=== PATIENT | female | born 1990 | race Caucasian/White ===

== ENCOUNTER 2017-08-03 01:40 | Inpatient (IN) ==
[~2017-08-03 01:40] MED LIST: *HR* Nalbuphine 10 MG/ML AMPUL IVP PRN; Famotidine 20 MG/2 ML VIAL IVP PRN; Lidocaine 1% 20 ML MDV INFILT PRN; Metoclopramide 10 MG/2 ML VIAL IVP PRN; Naloxone 0.4 MG/ML INJ IVP PRN
[2017-08-03] MEDS ORDERED: Ringers Solution, Lactated 1,000 ML IVC SCH (01:45)
[2017-08-03 01:54] LABS: Basophils % 0.3 %; Eosinophils # 0.1 K/mcL (0.0-0.6); Eosinophils % 0.7 %; Hematocrit 35.2 % (35.3-44.9); Hemoglobin 12.1 g/dL (11.5-15.4); Immature Granulocytes % 0.6 % (0-4); Immature Platelets 6.8 % (1.1-6.1); Lymphocytes # 2.5 K/mcL (0.6-4.6); Lymphocytes % 24.2 %; Mean Corpuscular HGB Conc 34.4 g/dL (31.6-35.5); Mean Corpuscular Volume 87.3 fL (83.0-100.0); Mean Platelet Volume 11.5 fL (9.4-12.4); Monocytes # 0.7 K/mcL (0.0-1.3); Monocytes % 6.9 %; Platelet Count 265 K/mcL (140-400); Red Blood Count 4.03 M/mcL (3.82-4.97); Red Cell Distribution Width 13.2 % (11.5-14.5); Segmented Neutrophils % 67.3 %
[2017-08-03 02:05] LABS: Amphetamine Screen,Urine Negative ng/mL (Cutoff=1000); Barbiturate Screen,Urine Negative ng/mL (Cutoff=200); Benzodiazepines Screen,Urine Negative ng/mL (Cutoff=200); Cannabinoid Screen,Urine Negative ng/mL (Cutoff = 50); Cocaine Screen,Urine Negative ng/mL (Cutoff= 300); Opiate Screen,Urine Negative ng/mL (Cutoff=300); Phencyclidine Screen,Urine Negative ng/mL (Cutoff=25)
--- NOTE | 2017-08-03 06:39 | OB/GYN History & Physical ---
Date of Encounter: 08/03/17 Time of Encounter: 06:27 Assessment and Plan (1) 38 weeks gestation of Current visit: Yes Status: Acute Admit to labor and delivery for observation of labor Intermittent auscultation Labs - CBC and clot to hold May have epidural and Nubain upon request Anticipate Dr. Wells is OB converter supervisor and is available as needed (2) Ruptured, membranes, premature Current visit: Yes Status: Acute Positive nitrazine Positive pooling Limit cervical checks Qualifiers: PROM onset of labor timing: onset of labor within 24 hours of rupture PROM gestational age: full term Qualified Code(s): O42.02 - Full-term premature rupture of membranes, onset of labor within 24 hours of rupture History of Present Illness Chief complaint: r/o rom HPI: Ms. Perdomo is a 26 year old female with an estimated date of of 08/17/17 at 38 weeks 0 days dated by LMP. She presents with concerns for rupture membranes. She reports that she thinks that ruptured around midnight. She denies contractions, leakage of fluid, vaginal bleeding. Endorses good movement. Her course has been uncomplicated. She was followed by the midwives throughout her . records are available in her chart and have been reviewed. Labs: O- GBS- Hep B- Hep C- HIV- RPR NR GC/CL- Rubella immune Varicella immune Past Med Surg Social Fam HX - Past Medical History Psychiatric history: no psych history - Social History Smoking Status: Never smoker Alcohol use: none Drug use: none - Family History Father Age: 53 Living Status: Still Living Hx Family Cardiac Disorders: Yes (htn) Hx Family Respiratory Disorders: No Hx Family Cancer: No Hx Family Genitourinary Disorders: No Hx Family Endocrine Disorder: No Hx Family Musculoskeletal Disorders: No Hx Family Neuromuscular Disorders: No Hx Family Neurologic Disorders: No Hx Family HEENT Disorders: No Hx Family Autoimmune Disorders: No Hx Family Reproductive Disorders: No Hx Family Psychosocial Disorders: No Hx Family Medical Disorders: Yes (hypothyroidism) Obstetrical History - Pregnancies : 1 Para: 0 Term: 0 : 0 Ab's: 0 Livin Medications and Allergies Ferrous Sulfate 324 mg PO DAILY 08/03/17 [History] Formula Tablet 1 tab PO DAILY 08/03/17 [History] 3 Allergy/AdvReac Type Severity Reaction Status Date / Time No Known Allergies Allergy Verified 05/22/18 01:40 Review of System OB All systems PM: reviewed and no additional remarkable complaints except as stated Exam - Vital Signs Vital signs: Initial Vital Signs Temp Pulse Resp BP 98.6 F 83 15 131/83 08/03/17 01:27 08/03/17 01:27 08/03/17 01:27 08/03/17 01:27 - Constitutional Constitutional: well developed, well nourished, average body habitus, mild distress - HEENT HEENT: Normocephaly, Mucus Membranes Moist - Neck Neck exam: full ROM - Lungs Respiratory exam: CTAB - Cardiovascular Cardiovascular exam: RRR, +S1, +S2 - Breasts Breast: bilateral: normal - Abdomen Abdomen: Present: bowel sounds normal, gravid, non tender - Extremities Extremities exam: normal capillary refill, normal inspection, radial pulses palpable and symmetrical - Vulva Vulva: bilateral: normal - Vagina Vagina: Present: normal moisture, discharge - Cervix Dilation: 4 (per RN) Effacement: 80 Station: -2 - Uterus Uterus exam: Present: normal size, normal contour - Adnexa Adnexa: bilateral: normal - Anus/Rectum Anus/Rectum: Present: normal perianal skin Results Result Diagrams: 08/03/17 01:40 Abnormal lab results Hct 35.2 % (35.3-44.9) L 08/03/17 01:40 Immature Plt Fraction 6.8 % (1.1-6.1) H 08/03/17 01:40 All other labs normal. - VTE Reasons for not Prescribing Prophylaxis: Treatment not Indicated - Low risk for VTE
[2017-08-03] MEDS: Ondansetron 4 MG/2 ML VIAL IVP PRN ×2 (06:58→15:24)
--- NOTE | 2017-08-03 09:38 | Anesthesia Evaluation PreOp ---
Date of Encounter: 08/03/17 Time of Encounter: 09:36 - Past History Planned Operation: vaginal del, G1 Cardiac History: Denies any Significant Hx Pulmonary History: Denies Any Significant HX MONOTYPE OPERATOR History: Denies Any Significant HX Other Medical History: Denies Any Significant HX Anesthesia History: No Prior Anesthetic Complications, Past Anesthesia Alcohol Use: none Drug use: none Medications and Allergies Ferrous Sulfate 324 mg PO DAILY 08/03/17 [History] Formula Tablet 1 tab PO DAILY 08/03/17 [History] 3 Allergy/AdvReac Type Severity Reaction Status Date / Time No Known Allergies Allergy Verified 08/03/17 01:40 Anesthesia Results - Labs 08/03/17 01:40 Anesthesia Exam - HEENT Pupil (Motor): Pupils equal Mallampati: II Teeth: Normal Oral Opening: Greater than 3 - MONOTYPE OPERATOR LOC: Oriented MONOTYPE OPERATOR Motor: Normal RUE, Normal LUE, Normal RLE, Normal LLE, Normal Face MONOTYPE OPERATOR Sensory: Normal: RUE, LUE, RLE, LLE, Face - Cardiac Rhythm: Regular Murmur: None - Pulmonary Breath Sounds: bilateral Clear Respiratory Effort: Symmetrical Anesthesia Assess/Plan ASA Score: 2 Modified [place] Scale for Level of Consciousness: Cooperative, oriented, and tranquil Anesthetic Plan: General, Regional Monitoring Plan: Standard Monitors
[2017-08-03] MEDS ORDERED: EPHEDrine 50 MG/ML VIAL IVP PRN (09:39)
[2017-08-03] MEDS ORDERED: Epidural Premix (fent/bupiv) 110 ML EP SCH (09:45)
--- NOTE | 2017-08-03 09:58 | OB Labor Progress Note ---
Date of Encounter: 08/03/17 Time of Encounter: 09:55 Labor Progress Note - Subjective Subjective: Patient doing well. Discussed POC with patient. Patient denies any questions or concerns. Patient reports pain is tolerable at this time. - Cervix Cervix: 4.5/90/0 - Heart Tones Heart Tones: 145 bpm moderate variability +15x15 accels no decels noted. Cat. 1 tracing - [place]: 2-5 min apart - Interventions Interventions: SVE - Plan Plan: Will start pitocin for labor augmentation Patient may have Nubain or epidural for pain management when she desires anticipate
[2017-08-03] MEDS ORDERED: Oxytocin 20 units/ LR 1000 mL 20 UNIT/1,000 ML BAG IVC SCH ×2 (10:00→20:20)
[2017-08-03] MEDS ORDERED: Epidural Premix (fent/bupiv) 110 ML EP ONE ×2 (10:26→16:29)
--- NOTE | 2017-08-03 11:08 | Anesthesia Procedures ---
Date of Encounter: 08/03/17 Time of Encounter: 10:38 Procedures: Anesthesia - Epidural/Spinal Patient ID/Chart reviewed: Yes Patient examined: Yes OB Eval: Gestational age: term OB Eval: : 1 OB Eval: Contractions: Non-stressed pattern Consent Obtained: Yes Supplemental Oxygen: None/Room Air Site Prep: Aseptic Technique, Sterile prep and drape, 0.5% Chlorhexidine/Alcohol Patient position: upright Local Anesthetic: Lidocaine 1% Amount of Local Anesthetic used: 2 Touhy Needle Gauge: 18 Touhy Needle Depth (cm): 6 Catheter Depth at Skin (cm): 10 Test Dose (1.5% Lido + Epi): Volume given (mls): 3 Test Dose Result: Negative Loading Dose: Other: 10ml from solution Loading Dose Administered: Thru Catheter Infusion Med: 0.125% Bupivacaine w/ 2 mcg/ml Fentanyl Infusion Rate (mls/hr): [address]: Tegaderm, Tape Interspace Used: L3-L4 Loss of Resistance (TAO): Yes (saline) Blood: No CSF: No Paresthesia: No Procedure: vss though out procedure, FHR per stable RN's
--- NOTE | 2017-08-03 13:11 | OB Labor Progress Note ---
Date of Encounter: 08/03/17 Time of Encounter: 13:09 Labor Progress Note - Subjective Subjective: Patient resting comfortably with epidural in place. Patient denies any questions or concerns. - Cervix Cervix: 7/100/0 - Heart Tones Heart Tones: 130 bpm moderate variability - [place]: 2-3 min apart - Interventions Interventions: SVE - Plan Plan: Continue labor management
[2017-08-03] MEDS ORDERED: *HR* ROPIVACAINE 1% PF 100 MG/10 ML VIAL ONE (14:33)
--- NOTE | 2017-08-03 17:49 | OB/GYN Procedure Note ---
Delivery - Delivery Date: 08/03/17 Provider: Ashanti Vogt Intrapartum events: none Delivery induction: none Delivery augmentation: pitocin Delivery monitor: external FHT, external uterine Anesthesia: epidural Quantitated Blood Loss: 300 - (s) A Infant Delivery Date: 08/03/17 Delivery Time: 17:02 Presentation: vertex Position: CED Gender: Female Viability: Viable Pounds: 7 Ounces: 2 Weight Gram: 3.23 kg at 1 minute: 7 at 5 mins: 8 Shoulder Dystocia: not encountered Specimens collected: cord blood Placenta: spontaneous Cord: 3 umbilical vessels - Repair Episiotomy: none Laceration Description: Labial (left labial repaired with 3-0) - Complications Delivery complications: none - Disposition Mom disposition: stable in LDR disposition: stable in LDR - Comments Comments: Called to LDR patient feeling pressure. SVE complete and +2. Patient was placed in stirrups and prepped for vaginal delivery. Under maternal effort patient spontaneously delivered a viable female infant. No nuchal cord, shoulder dystocia or meconium was encountered. was placed on maternal abdomen. Cord was clamped and cut. taken to warmer for further evaluation. Cord blood was collected. A left labial laceration was repaired with 3-0 vicryl. Pericare provided. taken to nursery for O2 for transition. Mother stable in LDR for recovery.
[2017-08-03] MEDS ORDERED: Rho Immune Globulin 1,500 UNIT SYRINGE IM PRN (20:20)
[2017-08-03] MEDS ORDERED: Benzocaine/Menthol 56 GM AEROSOL SPRAY TP PRN (20:20)
[2017-08-03] MEDS ORDERED: Measles/Mumps/Rubella Vacc 0.5 ML VIAL SQ PRN (20:20)
[2017-08-03] MEDS ORDERED: Lanolin 7 G OINT...G. TP PRN (20:20)
[2017-08-03] MEDS ORDERED: Acetaminophen 325 MG TABLET PO PRN (20:20)
[2017-08-03] MEDS ORDERED: *HR* HYDROcodone/Acet 5/325 mg TABLET PO PRN (20:20)
[2017-08-03] MEDS: Ibuprofen 600 MG TABLET PO PRN (21:21)
[2017-08-04] MEDS ORDERED: Prenatal Vit/FA 1 EACH TABLET PO SCH (09:00)
[2017-08-04] MEDS: Ibuprofen 600 MG TABLET PO PRN (12:09)
--- NOTE | 2017-08-04 15:10 | Discharge Summary ---
Date of Encounter: 08/04/17 Time of Encounter: 15:05 - Discharge Diagnosis (1) Vaginal delivery Priority: Primary Status: Acute Comments: Pt meeting all milestones. She desires to be discharged today. (2) Mother currently breast-feeding Priority: Secondary Status: Acute Comments: Rx breastpump given - Discharge Medications Prescriptions: Ibuprofen [Motrin] 600 mg PO Q6HR PRN #30 tablet PRN Reason: Cramping Breast Pump [BREAST PUMP] 1 each .ROUTE AD #1 each Docusate [Colace] 100 mg PO BID #30 capsule Home Medications: Formula Tablet 1 tab PO DAILY 08/03/17 [History] Benzocaine/Menthol Independence [Dermoplast Independence] 1 appl TP QID PRN aerosol 08/04/17 [Rx] Breast Pump [BREAST PUMP] 1 each .ROUTE AD #1 each 08/04/17 [Rx] Docusate [Colace] 100 mg PO BID #30 capsule 08/04/17 [Rx] Ibuprofen [Motrin] 600 mg PO Q6HR PRN #30 tablet 08/04/17 [Rx] Lanolin [Lansinoh] 1 appl TP TID PRN oint...g. 08/04/17 [Rx] Vit/FA 1 each PO DAILY tablet 08/04/17 [Rx] Allergies/Adverse Reactions: 3 Allergy/AdvReac Type Severity Reaction Status Date / Time No Known Allergies Allergy Verified 08/03/17 01:40 Data Procedures and tests throughout hospitalization: Laboratory Tests 08/03/17 08/03/17 08/03/17 01:40 01:40 17:15 WBC 10.3 RBC 4.03 Hgb 12.1 Hct 35.2 L MCV 87.3 MCH 30.0 MCHC 34.4 RDW 13.2 Plt Count 265 MPV 11.5 Immature Gran % 0.6 Seg Neutrophils % 67.3 Lymphocytes % 24.2 Monocytes % 6.9 Eosinophils % 0.7 Basophils % 0.3 Neutrophils # 7.0 Lymphocytes # 2.5 Monocytes # 0.7 Eosinophils # 0.1 Basophils # 0.0 Immature Plt Fraction 6.8 H Urine Opiates Screen Negative Ur Barbiturates Screen Negative Ur Phencyclidine Scrn Negative Ur Amphetamines Screen Negative U Benzodiazepines Scrn Negative Urine Cocaine Screen Negative U Marijuana (THC) Screen Negative Baby's Blood Type O RH NEGATIVE Mother's Blood Type O RH NEGATIVE Rhogam Indicated NO Labs on day of discharge: Labs from last 24 hours 08/03/17 17:15 Baby's Blood Type O RH NEGATIVE Mother's Blood Type O RH NEGATIVE Rhogam Indicated NO Date of admission: 08/03/17 01:40 Primary care physician: LENORA DEL REAL Consults: 08/03/17 20:20 Consult to Underground Conduit Installer [CONS] Routine Comment: Vaginal delivery, consult needed Discharging clinician: Marcella Neely Anticipated date of discharge: 08/04/17 - Patient Status Disposition: Home, Self-Care Condition: Good Functional capacity at discharge: independent ambulation Overall status at discharge: patient is progressing back to baseline - Discharge Instructions Follow Up With: NONE,PCP [Primary Care Provider] - Ashanti Vogt CNM [Non-Partnered Physician] - - Diet and Activity Activity: increase activity as tolerated Diet: regular diet Hospital Course Reason for admission: active labor Delivery: Episiotomy: none Laceration: other (left labial) Other procedures: none complications: none Discharge diagnosis: IUP at term delivered [place] baby: female Hospital course: - Delivery Date: 08/03/17 Provider: Ashanti Vogt Intrapartum events: none Delivery induction: none Delivery augmentation: pitocin Delivery monitor: external FHT, external uterine Anesthesia: epidural Quantitated Blood Loss: 300 - Infant (s) A Infant Delivery Date: 08/03/17 Delivery Time: 17:02 Presentation: vertex Position: CED Gender: Female Viability: Viable Pounds: 7 Ounces: 2 Weight Gram: 3.23 kg at 1 minute: 7 at 5 mins: 8 Shoulder Dystocia: not encountered Specimens collected: cord blood Placenta: spontaneous Cord: 3 umbilical vessels - Repair Episiotomy: none Laceration Description: Labial (left labial repaired with 3-0) - Complications Delivery complications: none - Disposition Mom disposition: home PPD#1 [place] disposition: 48 hour sepsis evaluation in nursery Time Attestation: Total time spent providing and/or coordinating discharge services: Time Spent: Less than 30 minutes Exam - Constitutional Vitals: Temp Pulse Resp BP Pulse Ox 98.1 F 97 16 122/83 97 08/04/17 07:30 08/04/17 07:30 08/04/17 07:30 08/04/17 07:30 08/04/17 07:30 General appearance IM: A&O X 3 - Respiratory Respiratory exam: Present: CTAB - Cardiovascular Cardiovascular exam IM: Present: RRR - GI/Abdominal GI/Abdominal exam IM: soft - Uterine Tone: Firm Uterus Position: 1 Finger Below Umbilicus - Extremities Exam Extremities exam IM: Present: pedal edema (mild bilaterally) - Neurological Exam Neurological exam: normal gait, oriented X3
[2017-08-04 15:17] VITALS: BP 123/80
== END 2017-08-04 18:19 | disposition home or self-care (01) | DRG 775 ==
LOC: 1NENULAB → 1NENUOBS 20:49
PROVIDERS: ADMIT Advanced Practice Midwife; ATTEND Advanced Practice Midwife

== ENCOUNTER 2020-07-25 02:36 | Inpatient (IN) ==
[~2020-07-25 02:36] MED LIST changes: +*HR* Nalbuphine 10 MG/ML AMPUL IV PRN; -*HR* Nalbuphine 10 MG/ML AMPUL IVP PRN; +Ondansetron 4 MG/2 ML VIAL IVP PRN
[2020-07-25] MEDS ORDERED: Ringers Solution, Lactated 1,000 ML IVC SCH (02:45)
[2020-07-25] MEDS ORDERED: *HR* FentaNYL (PF) 100 MCG/2 ML VIAL ONE (02:55)
[2020-07-25] MEDS ORDERED: Ropivacaine/PF 0.2% 20 ML VIAL ONE (02:55)
[2020-07-25 02:56] LABS: Basophils % 0.3 %; Eosinophils # 0.1 K/mcL (0.0-0.6); Eosinophils % 0.5 %; Hemoglobin 11.5 g/dL (11.5-15.4); Immature Granulocytes % 0.4 % (0-4); Lymphocytes # 2.9 K/mcL (0.6-4.6); Lymphocytes % 26.5 %; Mean Corpuscular HGB Conc 32.9 g/dL (31.6-35.5); Mean Corpuscular Hemoglobin 27.3 pg (28.0-33.3); Mean Corpuscular Volume 83.1 fL (83.0-100.0); Monocytes # 0.8 K/mcL (0.0-1.3); Neutrophils # 7.1 K/mcL (1.6-8.9); Platelet Count 313 K/mcL (140-400); Red Blood Count 4.21 M/mcL (3.82-4.97); Red Cell Distribution Width 13.1 % (11.5-14.5); Segmented Neutrophils % 65.3 %; White Blood Count 10.8 K/mcL (4.3-11.1)
[2020-07-25 03:04] LABS: Amphetamine Screen,Urine Negative ng/mL (Cutoff=1000); Barbiturate Screen,Urine Negative ng/mL (Cutoff=200); Benzodiazepines Screen,Urine Negative ng/mL (Cutoff=200); Cannabinoid Screen,Urine Negative ng/mL (Cutoff = 50); Cocaine Screen,Urine Negative ng/mL (Cutoff= 300); Opiate Screen,Urine Negative ng/mL (Cutoff=300); Phencyclidine Screen,Urine Negative ng/mL (Cutoff=25)
[2020-07-25] MEDS ORDERED: Epidural Premix (fent/bupiv) 110 ML EP ONE (03:20)
[2020-07-25] MEDS ORDERED: EPHEDrine 50 MG/ML VIAL IVP PRN (03:31)
[2020-07-25] MEDS ORDERED: Epidural Premix (fent/bupiv) 110 ML EP SCH (03:45)
[2020-07-25] MEDS ORDERED: Oxytocin 20 units/ LR 1000 mL 20 UNIT/1,000 ML BAG IVC ONE (03:54)
[2020-07-25 04:45] LABS: Adenovirus Not Detected (Not Detect); Bordetella Pertussis Not Detected (Not Detect); Chlamydophila pneumoniae Not Detected (Not Detect); Coronavirus 229E Not Detected (Not Detect); Coronavirus HKU1 Not Detected (Not Detect); Coronavirus NL63 Not Detected (Not Detect); Coronavirus OC43 Not Detected (Not Detect); Human Metapneumovirus Not Detected (Not Detect); Human Rhinovirus/Enterovirus Not Detected (Not Detect); Influenza A Subtype 2009 H1 Not Detected (Not Detect); Influenza B Not Detected (Not Detect); Mycoplasma pneumoniae Not Detected (Not Detect); Parainfluenza Virus 1 Not Detected (Not Detect); Parainfluenza Virus 2 Not Detected (Not Detect); Parainfluenza Virus 3 Not Detected (Not Detect); Parainfluenza Virus 4 Not Detected (Not Detect); Respiratory Syncytial Virus Not Detected (Not Detect); SARS-CoV-2 Not Detected (Not Detect)
[2020-07-25] MEDS ORDERED: Benzocaine/Menthol 56 GM AEROSOL SPRAY TP PRN (04:58)
[2020-07-25] MEDS ORDERED: Lanolin 7 G OINT...G. TP PRN (04:58)
[2020-07-25] MEDS ORDERED: Rho Immune Globulin 1,500 UNIT SYRINGE IM PRN (04:58)
[2020-07-25] MEDS ORDERED: Ibuprofen 600 MG TABLET PO PRN (04:58)
[2020-07-25] MEDS ORDERED: Acetaminophen 325 MG TABLET PO PRN (04:58)
[2020-07-25] MEDS ORDERED: Oxytocin 20 units/ LR 1000 mL 20 UNIT/1,000 ML BAG IVC SCH (04:58)
[2020-07-25 07:25] LABS: Alanine Aminotransferase 14 Units/L (7-52); Aspartate Amino Transferase 19 Units/L (13-39); BUN/Creatinine Ratio 17 (6-26); Blood Urea Nitrogen 11 mg/dL (6-20); Lactate Dehydrogenase 195 Units/L (140-271); Uric Acid 4.6 mg/dL (2.3-7.6); eGFR For African Americans > 60 (> 60); eGFR For Non-African Americans > 60 (> 60)
[2020-07-25] MEDS ORDERED: Prenatal Vit/FA 1 EACH TABLET PO SCH (09:00)
[2020-07-25 12:33] LABS: Creatinine,Urine 52 mg/dL; Protein/Creatinine Ratio,Urine 0.25 mg/mg (0.00-0.20)
[2020-07-25 21:25] VITALS: BP 127/77
== END 2020-07-26 21:15 | disposition home or self-care (01) | DRG 807 ==
LOC: 1NENULAB → 1NENUOBS 06:19
PROVIDERS: ADMIT Registered Nurse; ATTEND Registered Nurse